=== PATIENT | male | born 1995 | race Caucasian/White ===

== ENCOUNTER 2022-03-22 21:08 | Emergency (ER) | payer OTHER | END 2022-03-23 00:20 | disposition home or self-care (01) | LOC: ER1 21:08 | DX: S61.112A Laceration without foreign body of left thumb with damage to nail, initial encounter (principal); W22.8XXA Striking against or struck by other objects, initial encounter; Y92.009 Unspecified place in unspecified non-institutional (private) residence as the place of occurrence of the external cause; Z23 Encounter for immunization | CPT/HCPCS: 12001; 73140; 90471; 90715; 99283 ==